=== PATIENT | male | born 1955 | race Caucasian/White ===

== ENCOUNTER 2025-04-05 12:25 | Emergency (ER) | payer OTHER, SELFPAY ==
[2025-04-05 12:30] VITALS: BP 162/76; PULSE 77; TEMP 36.7; O2SAT 99; BMI 28.4
--- NOTE | 2025-04-05 17:04 | ED.GENADUL1 ---
HPI HPI - General Adult General Chief complaint: Extremity Problem, Nontraumatic Stated complaint: L ARM PAIN/SLIGHT NUMBNESS, HEADACHE, Source: patient Mode of arrival: walk-in Limitations: no limitations Related Data Home Medications ?Medication ?Instructions ?Recorded ?Confirmed No Known Home Medications 04/05/25 04/05/25 Allergies Allergy/AdvReac Type Severity Reaction Status Date / Time No Known Drug Allergies Allergy Verified 04/05/25 12:34 PFSH PFSH Social History Little interest or pleasure in doing things: not at all Feeling down, depressed, or hopeless: not at all Exam Constitutional Vital Signs, click to edit/add: Last Vital Signs Temp 98.1 F 04/05/25 12:30 Pulse 77 04/05/25 12:30 Resp 18 04/05/25 12:30 BP 162/76 H 04/05/25 12:30 Pulse Ox 99 04/05/25 12:30 O2 Del Method Room Air 04/05/25 12:30 Course Vital Signs Vital signs: Vital Signs Temperature 98.1 F 04/05/25 12:30 Pulse Rate 77 04/05/25 12:30 Respiratory Rate 18 04/05/25 12:30 Blood Pressure 162/76 H 04/05/25 12:30 Pulse Oximetry 99 04/05/25 12:30 Oxygen Delivery Method Room Air 04/05/25 12:30 Temperature 98.1 F 04/05/25 12:30 Pulse Rate 77 04/05/25 12:30 Respiratory Rate 18 04/05/25 12:30 Blood Pressure 162/76 H 04/05/25 12:30 Pulse Oximetry 99 04/05/25 12:30 Oxygen Delivery Method Room Air 04/05/25 12:30 Medical Decision Making MDM Narrative Medical decision making narrative: Patient left the hospital prior to being evaluated by an emergency medicine physician. I never had a physical encounter with the patient. Discharge Plan Discharge Patient Disposition: Left Without Being Seen Discharge Date/Time: 04/05/25 13:02
== END 2025-04-05 13:02 | disposition left against medical advice (07) ==
PROVIDERS: Emergency Provider Student in an Organized Health Care Education/Training Program
DX: Z53.21 Procedure and treatment not carried out due to patient leaving prior to being seen by health care provider (principal)

== ENCOUNTER 2025-06-01 07:48 | Outpatient (OUT) | payer OTHER, SELFPAY ==
--- OUTSIDE RECORDS SUMMARY | 2025-06-01 07:52 | XMS_ITS | Clinical Summary ---
Author Organization [employer] [facility] Address [id number] [address] 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
[2025-06-01 08:12] LABS: Hematocrit 47.2 % (42.0-54.0); Hemoglobin 15.9 g/dL (14.0-18.0); Immature Granulocytes Abs Auto 0.02 10^3/uL (0.00-0.03); Immature Granulocytes Pct Auto 0.2 % (0.0-0.5); Lymphocytes Absolute Auto 3.9 10^3/uL (1.2-3.8); Mean Corpuscular HGB Conc 33.7 g/dL (29.9-35.2); Mean Corpuscular Hemoglobin 30.1 pg (25.9-34.0); Mean Corpuscular Volume 89.2 fL (80.0-94.0); Platelet Count 182 10^3/uL (150-450); Red Blood Count 5.29 10^6/uL (4.70-6.10); White Blood Count 9.5 10^3/uL (4.0-11.0)
[2025-06-01 08:38] LABS: Alanine Aminotransferase 30 U/L (16-63); Albumin Globulin Ratio 1.1; Albumin Level 4.5 g/dL (3.4-5.0); Alkaline Phosphatase 105 U/L (46-116); Anion Gap 14.5; Aspartate Amino Transferase 23 U/L (15-37); Blood Urea Nitrogen 19.0 mg/dL (7.0-18.0); Calcium 9.5 mg/dL (8.5-10.1); Carbon Dioxide 28.3 mmol/L (21.0-32.0); Chloride 103 mmol/L (98-107); Cholesterol 199 mg/dL (<=200); Estimated GFR (African America >60 (>=60 mL/min/1.73m^2); Estimated GFR (Non-African Ame >60 (>=60 mL/min/1.73m^2); Globulin 4.2 g/dL; Glucose 113 mg/dL (74-106); HDL Cholesterol 48 mg/dL (40-60); Potassium 3.8 mmol/L (3.5-5.1); Sodium 142 mmol/L (136-145); Total Protein 8.7 g/dL (6.4-8.2); Triglycerides 66 mg/dL (<=150); VLDL CHOLESTEROL 13.2 mg/dL
== END 2025-06-01 07:49 | disposition home or self-care (01) ==
LOC: LAB 07:50
PROVIDERS: PCP Family Medicine; Visit Provider Family Medicine
DX: Z00.00 Encounter for general adult medical examination without abnormal findings (principal); R73.03 Prediabetes; Z12.5 Encounter for screening for malignant neoplasm of prostate
CPT/HCPCS: 36415; 80053; 80061; 83036; 85025; G0103